=== PATIENT | female | born 1935 | race Caucasian/White ===

== ENCOUNTER → 2018-03-24 | Outpatient (CLI) | payer OTHER ==
[~2018-03-24] VITALS: Ht 152.4 cm; Wt 65.8 kg
[~2018-03-24] MED LIST: ASPIRIN325 PO; CALCIUM 600 +1 EAC1 PO; GLUCOSAMINE CH1 EAC8 PO; HYDROCODONE-AP1 EAC6 PO; LIPITOR 20 MG T20 M1 PO; METOPROLOL SUCC50 MG PO; OMEPRAZOLE 20 M20 M1 PO; PRESERVISION A1 EACH PO; VALIUM5 MG PO; VALSARTAN-HCTZ1 EAC1 PO
--- NOTE | ~2018-03-24 | PATH ---
[facility] [address] [place] [address] PATHOLOGY RPT PROCEDURE Name: QI CUEVAS Room #: REG CLI M.R.#: [id number] Admission: 03/24/18 Date of : 39 Discharge: Report #: [id number] Path Case #: [id number] [facility] Accession Number: [id number] . 01 Material submitted: . POLYP @ ASCENDING COLON . 01 Clinical history: . Pre-op diagnosis: Colon lesion Post-op diagnosis: Polyp, diverticulosis . 02 Diagnosis: Polyp, at proximal ascending colon, endoscopic biopsy - Inflamed tubular adenoma. - Negative for high grade dysplasia. (IUV; 03/28/18) QRQ/03/28/2018 . 02 Electronically signed: . Tori Russell MD, Pathologist NPI- [id number] . 01 Gross description: . The specimen is received in formalin, labeled "Qi Ray, polyp at ascending colon". Received are two segments of pale lebron soft tissue measuring 0.3 and 0.4 cm in maximum dimensions. The specimen is submitted entirely in cassette A1. (CAA; 03/24/2018) QAC/QAC . 02 CPT . 818799 Performed at: [address], [place] [id number] MD Rolly Alba MD Phone: [phone] Performed at: [address] [id number] MD Tori Russell MD Phone: [phone]
--- NOTE | ~2018-03-24 | P ---
[facility] [place] [address] PROCEDURE REPORT Name: BHARGAVI CUEVAS Room #: REG [facility]#: [id number] Admission: 03/24/18 Attend Phys: Basil Casanova Discharge: Date of : 39 Report #: [id number] THIS REPORT FOR: //name// CC: Wilbert Carrington DATE OF SERVICE: 03/24/2018 PROCEDURE PERFORMED: Colonoscopy with biopsies. HISTORY OF PRESENT ILLNESS: The patient is an 83-year-old female who apparently had renal abnormality on routine labs prior to a plan surgery, was then diagnosed with possible urinary tract infection, eventually had a biopsy of her bladder. During that time, apparently Dr. Trujillo thought there may be an area of concern in the colon. The patient's last colonoscopy was in 2010. She does report some mild intermittent pelvic pain. She states her bowel movements have been normal. She denies any blood in her stools. There is no family history of colon cancer. PROCEDURE: The risks and benefits of the procedure were explained to the patient, those risks including, but not limited to bleeding, perforation, and the risk of sedation. She understood these risks and gave informed consent. Sedation was given using propofol per anesthesia. Next, a digital rectal exam was performed. I did feel a firmness on rectal exam. This appears to be external, however. Next, using a standard Olympus colonoscope, the scope was placed in the patient's anus and advanced under direct vision to the cecum. The overall prep was good. The cecum and ileocecal valve were normal in appearance. In the proximal ascending colon, a 4-mm sessile polyp was noted. This was removed with cold forceps, otherwise normal. The transverse and descending colon were normal. Multiple diverticula were noted in the sigmoid colon, no evidence of inflammation, otherwise normal. The rectal mucosa was normal. I did not see any mucosal abnormalities in the rectum. Again on digital rectal exam, I do feel a firmness, this may be her uterus or other entity. On retroflexion, no abnormalities were noted. The scope was then withdrawn and the procedure terminated. The patient tolerated the procedure well. IMPRESSION: 1. Small colonic polyp. 2. Sigmoid diverticulosis. 3. Normal rectum; however, on digital exam, I do feel a firmness, which is external. We would consider a CT or ultrasound of the pelvis. Of note, the patient is scheduled to see a CREATIVE SERVICES COORDINATOR in the near future as well. [address] [address] PROCEDURE REPORT Name: BHARGAVI CUEVAS Room #: REG [facility]#: [id number] Admission: 03/24/18 Attend Phys: Basil Casanova Discharge: Date of : 39 Report #: [id number] Thank you for allowing me to participate in her care. <ELECTRONICALLY SIGNED> By: Basil Carrington MD 03/24/18 1421 [id number] [id number] Basil Carrington MD /derek
== END | disposition home or self-care (01) ==
LOC: GI 08:23
DX: D12.2 Benign neoplasm of ascending colon (principal); K57.30 Diverticulosis of large intestine without perforation or abscess without bleeding; I10 Essential (primary) hypertension; E78.5 Hyperlipidemia, unspecified; F41.8 Other specified anxiety disorders; I25.2 Old myocardial infarction; K21.9 Gastro-esophageal reflux disease without esophagitis; Z90.710 Acquired absence of both cervix and uterus; Z95.5 Presence of coronary angioplasty implant and graft; Z98.890 Other specified postprocedural states; Z96.651 Presence of right artificial knee joint; Z98.41 Cataract extraction status, right eye; Z98.42 Cataract extraction status, left eye; Z88.0 Allergy status to penicillin; Z88.2 Allergy status to sulfonamides; Z88.8 Allergy status to other drugs, medicaments and biological substances; Z79.82 Long term (current) use of aspirin; Z79.899 Other long term (current) drug therapy
CPT/HCPCS: 62110; 62900

== ENCOUNTER → 2019-11-06 | Outpatient (CLI) | payer OTHER ==
[2019-11-06 10:18] LABS: CALCIUM 9.3 mg/dL (8.5-10.1); CREATININE 0.9 mg/dL (0.6-1.0); POTASSIUM 4.2 mmol/L (3.5-5.1)
--- NOTE | 2019-11-06 11:17 | 2DMMODE ---
[facility] [address] [place] [address] 2 D/M-MODE ECHOCARDIOGRAM Name: BHARGAVI CUEVAS Kerri Room #: REG [facility]#: [id number] Admission: 11/06/19 Attend Phys: Stephan Lagos, Discharge: Date of : 39 Report #: [id number] THIS REPORT FOR: //name// APPROVED REPORT Study performed: 11/06/2019 10:23:40 EXAM: Comprehensive 2D, Doppler, and color-flow Echocardiogram Patient Location: Out-Patient Status: routine BSA: 1.58 HR: 70 bpm BP: 122/76 mmHg Rhythm: NSR Other Information Study Quality: Good Indications Thoracic aneursym. History CAD with PCI 2D Dimensions RVDd: 35.14 mm IVSd: 13.04 (7-11mm) LVOT Diam: 20.42 (18-24mm) LVDd: 42.06 mm PWd: 11.27 (7-11mm) Ascending Ao: 41.16 (22-36mm) LVDs: 31.44 (25-40mm) Aortic Root: 35.35 mm Volumes Left Atrial Volume (Systole) Single Plane 4CH: 34.89 mL Single Plane 2CH: 52.84 mL LA ESV Index: 31.00 mL/m2 Aortic Valve AoV Peak Haris.: 1.46 m/s AO Peak Gr.: 8.55 mmHg LVOT Max P.10 mmHg LVOT Max V: 1.01 m/s MARILY Vmax: 2.27 cm2 Mitral Valve E/A Ratio: 0.7 MV Decel. Time: 279.81 ms MV E Max Haris.: 0.87 m/s [facility] [address] [place] [address] 2 D/M-MODE ECHOCARDIOGRAM Name: BHARGAVI CUEVAS Room #: REG [facility]#: [id number] Admission: 11/06/19 Attend Phys: Stephan Lagos, Discharge: Date of : 39 Report #: [id number] MV A Haris.: 1.22 m/s MV PHT: 81.15 ms IVRT: 65.74 ms Pulmonary Valve PV Peak Haris.: 0.80 m/s PV Peak Gr.: 2.55 mmHg Pulmonary Vein P Vein S: 0.75 m/s P Vein A: 0.28 m/s P Vein D: 0.42 m/s P Vein A Dur.: 83.0 msec P Vein S/D Ratio: 1.79 Tricuspid Valve TR Peak Haris.: 2.59 m/s RAP Estimate: 5.00 mmHg TR Peak Gr.: 27.00 mmHg PA Pressure: 32.00 mmHg Left Ventricle The left ventricle is normal size. There is normal LV segmental wall motion. Mild basal septal hypertrophy is present. Left ventricular systolic function is normal. LVEF is 55-60%. Mild diastolic dysfunction is present (impaired relaxation pattern). Right Ventricle The right ventricle is normal size. The right ventricular systolic function is normal. Atria The left atrium size is normal. The right atrium size is normal. Aortic Valve The aortic valve leaflets are mildly sclerotic. Mild aortic regurgitation. There is no aortic valvular stenosis. Mitral Valve Mild mitral annular calcification. Trace mitral regurgitation. No evidence of mitral valve stenosis. Tricuspid Valve The tricuspid valve is normal in structure. Mild to moderate tricuspid regurgitation. Estimated PAP is 30-35mmHg. Pulmonic Valve The pulmonary valve is normal in structure. Trace pulmonic regurgitation. [facility] [email or web address] [address] 2 D/M-MODE ECHOCARDIOGRAM Name: BHARGAVI CUEVAS Room #: REG [facility]#: [id number] Admission: 11/06/19 Attend Phys: Stephan Lagos, Discharge: Date of : 39 Report #: [id number] Great Vessels The aortic root is normal in size. 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 IVC is normal in size and collapses >50% with inspiration. Pericardium There is no pericardial effusion. <Conclusion> Left ventricular systolic function is normal. There is normal LV segmental wall motion. LVEF is 55-60%. Mild diastolic dysfunction The aortic valve leaflets are mildly sclerotic. Mild aortic regurgitation, no stenosis. Mild mitral annular calcification. Trace mitral regurgitation. Mild to moderate tricuspid regurgitation. Estimated pulmonary artery pressure of 30-35mmHg. 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 There is no pericardial effusion. <ELECTRONICALLY SIGNED> By: Stephan Lagos MD, FACC 11/06/19 111 16 16 Stephan Lagos MD, FACC /INF
== END ==
LOC: CV 09:16
PROVIDERS: Internal Medicine
DX: I08.3 Combined rheumatic disorders of mitral, aortic and tricuspid valves (principal); I25.10 Atherosclerotic heart disease of native coronary artery without angina pectoris; I77.810 Thoracic aortic ectasia; M47.814 Spondylosis without myelopathy or radiculopathy, thoracic region; J84.10 Pulmonary fibrosis, unspecified

== ENCOUNTER → 2019-12-26 | Outpatient (CLI) | payer OTHER | LOC: SJCVC 10:09 | DX: I25.10 Atherosclerotic heart disease of native coronary artery without angina pectoris (principal); I10 Essential (primary) hypertension; R94.31 Abnormal electrocardiogram [ECG] [EKG]; E78.5 Hyperlipidemia, unspecified; I65.23 Occlusion and stenosis of bilateral carotid arteries; I71.6 Thoracoabdominal aortic aneurysm, without rupture; E78.00 Pure hypercholesterolemia, unspecified; Z90.710 Acquired absence of both cervix and uterus; Z79.82 Long term (current) use of aspirin ==

== ENCOUNTER → 2020-07-02 | Outpatient (CLI) | payer OTHER | LOC: SJCVC 10:01 | PROVIDERS: ATTEND Internal Medicine | DX: I25.10 Atherosclerotic heart disease of native coronary artery without angina pectoris (principal); R94.31 Abnormal electrocardiogram [ECG] [EKG]; I10 Essential (primary) hypertension; E78.5 Hyperlipidemia, unspecified; I71.6 Thoracoabdominal aortic aneurysm, without rupture; I65.23 Occlusion and stenosis of bilateral carotid arteries; Z79.899 Other long term (current) drug therapy ==

== ENCOUNTER → 2021-01-07 | Outpatient (CLI) | payer OTHER | LOC: SJCVCIMAG 08:51 | PROVIDERS: ATTEND Internal Medicine | DX: I08.0 Rheumatic disorders of both mitral and aortic valves (principal); I77.810 Thoracic aortic ectasia; I11.9 Hypertensive heart disease without heart failure; R94.31 Abnormal electrocardiogram [ECG] [EKG]; I25.10 Atherosclerotic heart disease of native coronary artery without angina pectoris; I65.23 Occlusion and stenosis of bilateral carotid arteries; E78.5 Hyperlipidemia, unspecified; E78.00 Pure hypercholesterolemia, unspecified; Z79.82 Long term (current) use of aspirin; Z79.899 Other long term (current) drug therapy; Z88.0 Allergy status to penicillin; Z88.8 Allergy status to other drugs, medicaments and biological substances; Z82.49 Family history of ischemic heart disease and other diseases of the circulatory system ==

== ENCOUNTER → 2021-07-15 | Outpatient (CLI) | payer OTHER | LOC: SJCVC 10:08 | PROVIDERS: ATTEND Internal Medicine | DX: R94.31 Abnormal electrocardiogram [ECG] [EKG] (principal); I25.10 Atherosclerotic heart disease of native coronary artery without angina pectoris; I10 Essential (primary) hypertension; E78.5 Hyperlipidemia, unspecified; I71.6 Thoracoabdominal aortic aneurysm, without rupture; I65.23 Occlusion and stenosis of bilateral carotid arteries; Z72.89 Other problems related to lifestyle; Z79.899 Other long term (current) drug therapy; Z88.0 Allergy status to penicillin; Z88.1 Allergy status to other antibiotic agents; Z88.2 Allergy status to sulfonamides; Z88.8 Allergy status to other drugs, medicaments and biological substances ==